=== PATIENT | female | born 1985 | race Caucasian/White ===

== ENCOUNTER 2024-03-21 08:00 | Day surgery (SDC) | payer OTHER, SELFPAY ==
[2024-03-19 14:14] VITALS: BMI 21.6
--- NOTE | 2024-03-21 | PATH_ITS ---
[facility] Accession Number: [id number] No. of containers..02 Tissue . 01 Material submitted: . PART A: cervix - LEEP CONE CUT AT 1200 PART B: endocervix - ENDOCERVICAL CURETTINGS . 01 Diagnosis: A. UTERINE CERVIX, LEEP CONIZATION CUT AT 12 O'CLOCK: High-grade squamous intraepithelial lesion (RABIA-2 to RABIA-3/moderate to severe squamous dysplasia) extending into the endocervical glands. Negative for glandular dysplasia and invasive carcinoma. Surgical margins: Negative for high-grade squamous intraepithelial lesion. . B. ENDOCERVIX, CURETTINGS: Benign endocervical tissue. Negative for dysplasia and malignancy. [facility] 03/27/2024 1615 Local . 01 Electronically signed: . Elbert Marshall MD, Pathologist NPI- [id number] . 01 Gross description: . A. Received in formalin, labeled with two identifiers and LEEP cone cut at 12, is an oriented incised circular fragment of cervix with the cut designating 12 o'clock per the requisition and reapproximated to measure 1.1 cm from 12-6, 1.9 cm from 3-9, and 0.7 cm thick. The ectocervix is alba and wrinkled. The cervical os is slit-like and reapproximates to 0.4 cm in diameter. The endocervical margin is inked orange while the remaining stromal margins are inked blue. The specimen is radially sectioned and submitted as follows: A1: 123. A2: 3-6. A3: 6-9. A4: 06-26. B. Received in formalin, labeled with two identifiers and endocervical curetting, are multiple alba soft tissue fragments admixed with mucoid material received on Telfa paper, aggregating to 1.1 x 1.0 x 0.1 cm. Filtered and submitted entirely in cassette B1. ([id number]) /FRR 03/22/2024 1540 Local . 01 Pathologist provided ICD-10: N87.1, D06.9 . 01 CPT . 863131, 483329 Specimen Comment: A courtesy copy of this report has been sent to [phone] Performed at: [address] [facility] [address], [place], [place] [id number] MD Antonio Landaverde MD Phone: [phone]
[2024-03-21] MEDS: LACTATED RINGERS 1,000 ML 100 ML IV (08:36)
[2024-03-21 08:40] VITALS: BP 122/81; PULSE 77; RESP 18; TEMP 36.8; O2SAT 100; BMI 21.6
--- NOTE | 2024-03-21 09:32 | SUR.PREOP ---
0830 preg test deferred - pt states had tubal ligation 10 yrs ago
--- NOTE | 2024-03-21 09:52 | PM.PREOP ---
Pre-operative Note COVID-19 COVID-19 status: Not tested Interval Note History & Physical reviewed/Exam performed by Physician: Yes Changes to H&P: No
[2024-03-21 10:48] VITALS: BP 98/65; PULSE 77; RESP 10; TEMP 36.3; O2SAT 100
[2024-03-21 10:53] VITALS: BP 102/65; PULSE 74; RESP 10; O2SAT 100
[2024-03-21] MEDS: ACETIC ACID 500 ML IRRIG 20 ML TOP (10:55)
[2024-03-21 10:58] VITALS: BP 104/69; PULSE 71; RESP 10; O2SAT 100
[2024-03-21 11:03] VITALS: BP 111/77; PULSE 75; RESP 12; TEMP 36.3; O2SAT 100
--- NOTE | 2024-03-21 11:07 | P.OP_ITS ---
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 Contraception is by bilateral tubal ligation In August 2013. Patient's last Pap was about 5 years ago up until recently when she had her most recent Pap which showed ASCUS with positive high-risk HPV. colposcopy directed biopsy performed 01/08/2024 shows high-grade squamous dysplasia and after discussion regarding all options for treatment /management, the patient has opted to proceed with loop electrosurgical excision procedure ( LEEP). She presents today for her scheduled surgery. Surgeon: Vinod Martin Anesthesia Type: General Operative Notes Findings: No significant aceto-white epithelium noted at cervical transformation zone. Closure Type: not applicable Specimen(s): other (LEEP cone, cut at 12:00.) Estimated blood loss (mL): 5 Blood products transfused: none Procedure in detail: With the patient under satisfactory general anesthesia in the modified dorsal lithotomy position, the perineum, and paravaginal surfaces were prepped Betadine. Pre-surgical safety time-out was then taken in accordance with [facility] Main OR protocols. A LEEP speculum was then inserted in the vagina and the cervix easily visualized. Vinegar solution was used to develop aceto-white epithelium of the cervix with the findings as noted above. A 15 mm x 10 mm LEEP electrode was then used to perform LEEP using 60 w of pure cut. The cone bed was then made hemostatic with use of electrocautery in coagulation mode. The entire cone bed was easily rendered hemostatic and the procedure was terminated by removal of the speculum from the vagina. Patient was then awakened transferred to the PACU for a period of observation and recovery after having tolerated the procedure well. Complications: none Post-operative Condition: stable Disposition: PACU Plan for aftercare: Routine postoperative care
[2024-03-21 11:08] VITALS: BP 114/81; PULSE 76; RESP 15; O2SAT 100
== END 2024-03-21 11:23 | disposition home or self-care (01) ==
PROVIDERS: PCP Student in an Organized Health Care Education/Training Program; Referring Provider Obstetrics & Gynecology; Visit Provider Obstetrics & Gynecology
PROC: 0UBC7ZZ Excision of Cervix, Via Natural or Artificial Opening (ICD-10-PCS; CPT 57522; principal; 2024-03-21 09:45)
DX: D06.0 Carcinoma in situ of endocervix (principal)
CPT/HCPCS: 57522; J1100; J1885; J2250; J2405; J2704; J3010